=== PATIENT | female | born 1985 | race Caucasian/White ===

== ENCOUNTER 2018-10-31 13:57 | Emergency (ER) | payer OTHER ==
[~2018-10-31] VITALS: Ht 165.1 cm; Wt 104.3 kg
[~2018-10-31 13:57] MED LIST: BUSPAR10 MG PO; CELEXA10 MG PO; CLARITIN10 MG PO; ZITHROMAX Z PA250 MG PO; ZOLOFT50 MG PO
[2018-10-31] MEDS ORDERED: HYDROXYZINE HCL25 MG PO (14:13)
[2018-10-31] MEDS ORDERED: ESCITALOPRAM OX20 MG PO (14:13)
[2018-10-31] MEDS ORDERED: ZOFRAN4 MG PO (15:35)
== END 2018-10-31 16:03 | disposition home or self-care (01) ==
LOC: ED 13:57
DX: B34.9 Viral infection, unspecified (principal); R11.2 Nausea with vomiting, unspecified; R05 Cough; R07.89 Other chest pain; G43.909 Migraine, unspecified, not intractable, without status migrainosus; Z79.899 Other long term (current) drug therapy

== ENCOUNTER 2019-05-20 17:54 | Emergency (ER) | payer OTHER ==
[~2019-05-20] VITALS: Ht 165.1 cm; Wt 106.6 kg
--- NOTE | ~2019-05-20 | EKG ---
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
[~2019-05-20 17:54] MED LIST changes: +ESCITALOPRAM OX20 MG PO; +HYDROXYZINE HCL25 MG PO; +ZOFRAN4 MG PO
[2019-05-20 18:54] LABS: BASO % 0.3 % (0.0-1.0); EOS # 0.1 10*3/uL (0.0-0.4); EOS % 1.1 % (1.0-4.0); HEMATOCRIT 41.4 % (37.0-47.0); HEMOGLOBIN 13.9 g/dl (12.0-16.0); LYMPH # 2.9 10*3/uL (1.3-4.4); LYMPH % 30.5 % (27.0-41.0); MEAN CELL VOLUME 94.3 fl (81.0-99.0); MEAN CORPUSCULAR HGB 31.7 pg (27.0-31.0); MEAN CORPUSCULAR HGB CONC 33.6 g/dl (33.0-37.0); MEAN PLATELET VOLUME 9.4 fl (9.6-12.3); MONO # 0.8 10*3/uL (0.1-1.0); MONO % 8.7 % (3.0-9.0); NEUT # 5.7 10*3/uL (2.3-7.9); PLATELET COUNT AUTOMATED 380 10*3/uL (130-400); RED BLOOD COUNT 4.39 10*6/uL (4.10-5.10); RED CELL DISTRI WIDTH 12.5 % (0-14.5); WHITE BLOOD COUNT 9.6 10*3/uL (4.8-10.8)
[2019-05-20 19:11] LABS: ALBUMIN 3.7 gm/dl (3.1-4.5); ALKALINE PHOSPHATASE 69 U/L (45-117); BUN 12 mg/dl (7-24); CHLORIDE 106 mmol/L (98-107); CREATININE 0.78 mg/dL (0.55-1.02); LIPASE 75 U/L (73-393); POTASSIUM 3.3 mmol/L (3.5-5.1); SGOT/AST 14 IU/L (3-35); SGPT/ALT 18 U/L (12-78); SODIUM 139 mmol/L (136-145); TOTAL PROTEIN 7.2 gm/dL (6.4-8.2)
[2019-05-20 19:16] LABS: BILIRUBIN NEGATIVE (NEGATIVE); BLOOD NEGATIVE (NEGATIVE); CLARITY SL CLOUDY (CLEAR); COLOR YELLOW (YELLOW); GLUCOSE NEGATIVE (NEGATIVE); KETONE NEGATIVE (NEGATIVE); LEUKO ESTERASE TRACE (NEGATIVE); NITRITE NEGATIVE (NEGATIVE); UROBILINOGEN 0.2 E.U./dl (0.2-1.0)
[2019-05-20 19:16] LABS: TROPONIN I < 0.015 ng/ml (<0.045)
[2019-05-20 19:30] LABS: EPITHELIAL CELLS 31-40
[2019-05-20 19:31] LABS: BACTERIA 2+
[2019-05-20] MEDS ORDERED: ZOFRAN4 MG PO (20:29)
== END 2019-05-20 21:10 | disposition home or self-care (01) ==
LOC: ED 17:54
PROVIDERS: Physician Assistant
DX: R10.13 Epigastric pain (principal); R11.2 Nausea with vomiting, unspecified; R42 Dizziness and giddiness; Z79.899 Other long term (current) drug therapy

== ENCOUNTER → 2019-06-03 | Outpatient (CLI) | payer OTHER | END | disposition home or self-care (01) | LOC: US 10:49 | DX: K80.20 Calculus of gallbladder without cholecystitis without obstruction (principal) ==

== ENCOUNTER 2020-08-08 16:20 | Emergency (ER) | payer OTHER ==
[~2020-08-08] VITALS: Ht 165.1 cm; Wt 117.9 kg
[2020-08-08 18:21] LABS: BASO % 0.4 % (0.0-1.0); EOS # 0.1 10*3/uL (0.0-0.4); EOS % 1.1 % (1.0-4.0); HEMATOCRIT 46.5 % (37.0-47.0); LYMPH # 3.5 10*3/uL (1.3-4.4); LYMPH % 34.6 % (27.0-41.0); MEAN CELL VOLUME 95.1 fl (81.0-99.0); MEAN CORPUSCULAR HGB 30.7 pg (27.0-31.0); MEAN CORPUSCULAR HGB CONC 32.3 g/dl (33.0-37.0); MEAN PLATELET VOLUME 9.8 fl (9.6-12.3); MONO # 0.9 10*3/uL (0.1-1.0); MONO % 8.8 % (3.0-9.0); NEUT # 5.5 10*3/uL (2.3-7.9); NEUT % 54.7 % (47.0-73.0); PLATELET COUNT AUTOMATED 383 10*3/uL (130-400); RED BLOOD COUNT 4.89 10*6/uL (4.10-5.10); RED CELL DISTRI WIDTH 12.6 % (0-14.5); WHITE BLOOD COUNT 10.1 10*3/uL (4.8-10.8)
[2020-08-08 18:39] LABS: ALBUMIN 3.5 gm/dl (3.1-4.5); ALKALINE PHOSPHATASE 70 U/L (45-117); BUN 13 mg/dl (7-24); CHLORIDE 111 mmol/L (98-107); CREATININE 0.83 mg/dL (0.55-1.02); POTASSIUM 4.3 mmol/L (3.5-5.1); SGOT/AST 8 IU/L (3-35); SGPT/ALT 16 U/L (12-78); SODIUM 140 mmol/L (136-145); TOTAL PROTEIN 6.9 gm/dL (6.4-8.2)
[2020-08-08 18:43] LABS: TROPONIN I < 0.015 ng/ml (<0.045)
[2020-08-08 18:49] LABS: BILIRUBIN Negative (Negative); BLOOD Negative (Negative); CLARITY Cloudy (Clear); COLOR Yellow (Yellow); GLUCOSE Negative (Negative); KETONE Trace (Negative); LEUKO ESTERASE 2+ (Negative); NITRITE Positive (Negative); PH 6.5 (4.5-8.0); SPECIFIC GRAVITY 1.025 (1.001-1.030)
[2020-08-08 18:56] LABS: URINE AMPHETAMINES < 1000 (1000ng/ml); URINE BARBITURATES < 200 (200ng/ml); URINE BENZODIAZEPINES < 200 (200ng/ml); URINE CANNABINOIDS (THC) < 50 (50ng/ml); URINE COCAINE < 300 (300ng/ml); URINE METHADONE < 300 (300ng/ml); URINE OPIATES > 300 (300ng/ml)
[2020-08-08 19:11] LABS: BACTERIA 4+; WBC 21-30 wbc/hpf (0-5)
[2020-08-08 19:12] LABS: URINE PHENCYCLIDINE < 25 (25ng/ml)
[2020-08-08] MEDS ORDERED: MACROBID100 M1 PO (19:31)
== END 2020-08-08 19:46 | disposition home or self-care (01) ==
LOC: ED 16:20
PROVIDERS: Nurse Practitioner
DX: F41.0 Panic disorder [episodic paroxysmal anxiety] (principal); N39.0 Urinary tract infection, site not specified; Z79.899 Other long term (current) drug therapy

== ENCOUNTER 2022-04-29 17:31 | Emergency (ER) | payer SELFPAY ==
[~2022-04-29] VITALS: Wt 108.9 kg
[~2022-04-29 17:31] MED LIST changes: +MACROBID100 M1 PO
== END 2022-04-29 19:52 | disposition left against medical advice (07) ==
LOC: ED 17:31
DX: Z53.21 Procedure and treatment not carried out due to patient leaving prior to being seen by health care provider (principal)

== ENCOUNTER 2023-11-01 11:31 | Emergency (ER) | payer OTHER ==
[~2023-11-01] VITALS: Ht 165.1 cm; Wt 54.4 kg
[2023-11-01] MEDS ORDERED: VRAYLAR1.5 MG PO (11:54)
[2023-11-01] MEDS ORDERED: CLONIDINE HCL0.2 MG PO (11:54)
[2023-11-01] MEDS ORDERED: Dicyclomine Hydrochloride 20 MG/10 ML OSYR PO STA (12:11)
[2023-11-01] MEDS ORDERED: Lidocaine Hydrochloride 15 ML UDC PO STA (12:11)
[2023-11-01] MEDS ORDERED: MG-AL HYDROXIDE/SIMETICONE 30 ML UDC PO STA (12:11)
[2023-11-01] MEDS ORDERED: Ondansetron Hydrochloride 4 MG TAB SL ONE (12:15)
[2023-11-01 12:30] LABS: BASO % 0.4 % (0.0-1.0); EOS % 0.1 % (1.0-4.0); HEMATOCRIT 42.5 % (37.0-47.0); LYMPH # 1.4 10*3/uL (1.3-4.4); LYMPH % 16.8 % (27.0-41.0); MEAN CELL VOLUME 92.2 fl (81.0-99.0); MEAN CORPUSCULAR HGB 30.6 pg (27.0-31.0); MEAN CORPUSCULAR HGB CONC 33.2 g/dl (33.0-37.0); MEAN PLATELET VOLUME 9.5 fl (9.6-12.3); MONO # 0.4 10*3/uL (0.1-1.0); MONO % 4.3 % (3.0-9.0); NEUT # 6.4 10*3/uL (2.3-7.9); PLATELET COUNT AUTOMATED 468 10*3/uL (130-400); RED BLOOD COUNT 4.61 10*6/uL (4.10-5.10); WHITE BLOOD COUNT 8.1 10*3/uL (4.8-10.8)
[2023-11-01 12:58] LABS: ALKALINE PHOSPHATASE 74 U/L (46-116); BUN 7 mg/dl (9-23); CHLORIDE 108 mmol/L (98-107); LIPASE 27 U/L (12-53); POTASSIUM 3.4 mmol/L (3.4-5.1); SGPT/ALT 9 U/L (5-49); TOTAL PROTEIN 7.2 gm/dL (6.0-8.0)
== END 2023-11-01 15:43 | disposition home or self-care (01) ==
LOC: ED 11:31
PROVIDERS: Internal Medicine
DX: K59.00 Constipation, unspecified (principal); F32.A Depression, unspecified; R11.0 Nausea; Z87.891 Personal history of nicotine dependence